=== PATIENT | male | born 1995 | race Caucasian/White ===

== ENCOUNTER → 2017-08-27 | Outpatient (CLI) | payer OTHER ==
[2017-08-27 12:02] LABS: Basophils % (A) 0 %; Eosinophils # (A) 0.2 k/uL (0-0.7); Eosinophils % (A) 2 %; HCT 46.8 % (39.0-53.0); HGB 15.3 gm/dL (13.0-17.5); Lymphocytes # (A) 1.7 k/uL (1.0-4.8); Lymphocytes % (A) 14 %; MCH 29.3 pg (25.0-35.0); MCHC 32.7 g/dL (31.0-37.0); MCV 89.6 fL (80.0-100.0); Monocytes # (A) 0.7 k/uL (0-1.0); Monocytes % (A) 6 %; Neutrophils # (A) 9.3 k/uL (1.3-7.7); Neutrophils % (A) 76 %; Platelet Count 227 k/uL (150-450); RBC 5.22 m/uL (4.30-5.90); RDW 12.2 % (11.5-15.5); WBC 12.2 k/uL (3.8-10.6)
[2017-08-27 12:11] LABS: ALT 129 U/L (21-72); AST 56 U/L (17-59); Albumin 4.7 g/dL (3.5-5.0); Alkaline Phosphatase 66 U/L (38-126); Anion Gap 12 mmol/L; Blood Urea Nitrogen 10 mg/dL (9-20); Carbon Dioxide 28 mmol/L (22-30); Chloride 100 mmol/L (98-107); Cholesterol 208 mg/dL (<200); Glucose 93 mg/dL (74-99); HDL Cholesterol 41 mg/dL (40-60); LDL Cholesterol,Calculated 138 mg/dL (0-99); Potassium 4.4 mmol/L (3.5-5.1); Sodium 140 mmol/L (137-145); Total Bilirubin 1.6 mg/dL (0.2-1.3); Total Protein 7.5 g/dL (6.3-8.2); Triglycerides 144 mg/dL (<150)
--- NOTE | 2017-08-28 15:05 | XR ---
Left shoulder HISTORY: Pain 3 views of the left shoulder No comparisons Bone mineralization, joint spaces and alignment are maintained. Left lung apex as visualized is eunice l. IMPRESSION: No acute fracture or dislocation. Consider shoulder MRI for better evaluation.
[2017-08-28 16:04] LABS: Hepatitis A Antibody IgM Non-Reactive (Non-Reactive); Hepatitis B Core IgM Non-Reactive (Non-Reactive)
== END | disposition home or self-care (01) ==
LOC: LABWHC1 11:09
PROVIDERS: ATTEND Family Medicine
DX: M25.512 Pain in left shoulder (principal); Z00.00 Encounter for general adult medical examination without abnormal findings; R74.8 Abnormal levels of other serum enzymes
CPT/HCPCS: 36415; 80053; 80061; 80074; 84443; 85025

== ENCOUNTER → 2017-09-16 | Outpatient (CLI) | payer OTHER ==
--- NOTE | 2017-09-16 12:46 | US ---
EXAMINATION TYPE: US abdomen complete DATE OF EXAM: 09/16/2017 COMPARISON: NONE CLINICAL HISTORY: R74.8 Abnormal serum enzymes. Elevated liver enzymes EXAM MEASUREMENTS: Liver Length: 17.4 cm Gallbladder Wall: 0.2 cm CBD: 0.3 cm Spleen: 10.8 cm Right Kidney: 12.1 X 5.2 X 5.8 cm Left Kidney: 10.8 X 5.1 X 4.9 cm Pancreas: Tail obscured by overlying bowel gas, visualized portions appear wnl Liver: Attenuating, heterogenous and course echotexture. Measuring upper limites of normal Gallbladder: wnl Evidence for sonographic Montanez's sign: No CBD: wnl as visualized, distal portion obscured by bowel gas Spleen: wnl Right Kidney: No hydronephrosis or masses seen Left Kidney: No hydronephrosis or masses seen Upper IVC: wnl Abd Aorta: wnl IMPRESSION: 1. Pattern of the liver is nonspecific and be seen with hepatitis, fatty infiltration or diffuse hepa tocellular disease. Correlate clinically.
== END | disposition home or self-care (01) ==
LOC: RADUSWWP 10:31
PROVIDERS: ATTEND Family Medicine
DX: K75.9 Inflammatory liver disease, unspecified (principal); R74.8 Abnormal levels of other serum enzymes
CPT/HCPCS: 76700

== ENCOUNTER → 2017-09-30 | Outpatient (CLI) | payer OTHER ==
[2017-09-30 17:59] LABS: ALT 105 U/L (21-72); AST 66 U/L (17-59)
== END | disposition home or self-care (01) ==
LOC: LABWHC1 17:26
PROVIDERS: ATTEND Family Medicine
DX: R74.8 Abnormal levels of other serum enzymes (principal)
CPT/HCPCS: 36415; 84450; 84460

== ENCOUNTER → 2017-11-27 | Outpatient (CLI) | payer OTHER ==
[2017-11-27 15:09] LABS: Albumin 4.6 g/dL (3.5-5.0); Bilirubin, Delta 0.4 mg/dL (0.0-0.2); Bilirubin,Unconjugated 0.9 mg/dL (0.0-1.1); Total Bilirubin 1.3 mg/dL (0.2-1.3); Total Protein 7.5 g/dL (6.3-8.2)
== END | disposition home or self-care (01) ==
LOC: LABWHC1 14:27
PROVIDERS: ATTEND Family Medicine
DX: R74.8 Abnormal levels of other serum enzymes (principal)
CPT/HCPCS: 36415; 80076

== ENCOUNTER → 2017-11-30 | Outpatient (CLI) | payer OTHER ==
[2017-11-30 17:42] LABS: ALT 94 U/L (21-72); AST 47 U/L (17-59); Albumin 4.5 g/dL (3.5-5.0); Alkaline Phosphatase 76 U/L (38-126); Anion Gap 14 mmol/L; Blood Urea Nitrogen 13 mg/dL (9-20); Carbon Dioxide 26 mmol/L (22-30); Chloride 102 mmol/L (98-107); Glucose 96 mg/dL (74-99); Potassium 4.1 mmol/L (3.5-5.1); Sodium 142 mmol/L (137-145); Total Bilirubin 1.1 mg/dL (0.2-1.3); Total Protein 7.3 g/dL (6.3-8.2)
[2017-12-01 00:48] LABS: Iron Saturation 13.37 (15.00-50.00)
[2017-12-01 12:53] LABS: Ceruloplasmin 29.7 mg/dL (20.0-60.0)
[2017-12-02 12:06] LABS: Albumin 4.38 g/dL (3.80-4.90); Gamma Globulin 0.76 g/dL (0.70-1.50)
== END | disposition home or self-care (01) ==
LOC: LABWHC1 16:48
PROVIDERS: ATTEND Internal Medicine Gastroenterology
DX: R74.8 Abnormal levels of other serum enzymes (principal)
CPT/HCPCS: 36415; 80053; 82103; 82390; 82728; 83516; 83540; 83550; 84165; 86038